=== PATIENT | male | born 1970 | race Caucasian/White ===

== ENCOUNTER 2019-02-14 15:10 | Emergency (ER) | payer OTHER ==
[~2019-02-14] VITALS: Ht 162.6 cm; Wt 72.6 kg
[2019-02-14 15:16] VITALS: Ht 162.6 cm; Wt 72.6 kg
[2019-02-14 17:26] VITALS: BP 120/71
== END 2019-02-14 17:26 | disposition home or self-care (01) ==
LOC: ED 15:10
DX: S20.211A Contusion of right front wall of thorax, initial encounter (principal); V49.9XXA Car occupant (driver) (passenger) injured in unspecified traffic accident, initial encounter; Y93.I9 Activity, other involving external motion; Y92.413 State road as the place of occurrence of the external cause; Y99.8 Other external cause status
CPT/HCPCS: 94150